=== PATIENT | male | born 1955 | race Caucasian/White ===

== ENCOUNTER 2017-12-06 08:31 | Day surgery (SDC) | payer OTHER ==
[2017-12-06] MEDS ORDERED: LACTATED RINGERS 1,000 ML IV ONE (08:55)
[2017-12-06] MEDS ORDERED: MIDAZOLAM 2 MG/2 ML VIAL IVP ONE (10:03)
[2017-12-06] MEDS ORDERED: fentaNYL 250 MCG/5 ML VIAL IVP ONE (10:03)
[2017-12-06 10:45] VITALS: BP 100/51
== END 2017-12-06 08:32 | disposition home or self-care (01) ==
LOC: SDS 08:31
PROVIDERS: ATTEND Surgery
PROC: 0DBL8ZZ Excision of Transverse Colon, Via Natural or Artificial Opening Endoscopic (ICD-10-PCS; 2017-12-06)
PROC: 0DBN8ZZ Excision of Sigmoid Colon, Via Natural or Artificial Opening Endoscopic (ICD-10-PCS; 2017-12-06)
PROC: 0DBP8ZZ Excision of Rectum, Via Natural or Artificial Opening Endoscopic (ICD-10-PCS; 2017-12-06)
PROC: 0DBM8ZZ Excision of Descending Colon, Via Natural or Artificial Opening Endoscopic (ICD-10-PCS; principal; 2017-12-06 10:00)
DX: Z12.11 Encounter for screening for malignant neoplasm of colon (principal); D12.4 Benign neoplasm of descending colon; D12.5 Benign neoplasm of sigmoid colon; D12.3 Benign neoplasm of transverse colon; K62.1 Rectal polyp; K57.30 Diverticulosis of large intestine without perforation or abscess without bleeding; K21.9 Gastro-esophageal reflux disease without esophagitis; E78.5 Hyperlipidemia, unspecified; I10 Essential (primary) hypertension; Z87.891 Personal history of nicotine dependence
CPT/HCPCS: 45380; J3010; J7120

== ENCOUNTER 2020-02-16 01:11 | Inpatient (IN) | payer MEDICARE, OTHER ==
--- NOTE | 2020-02-16 01:14 | ED Physician Documentation ---
History of Present Illness - Stated complaint Stated Complaint: M /DIZZY/FEVER - History obtained from History obtained from: Patient - Additonal information Additional information: 64-year-old male with a history of urinary tract infection and BPH and prostatitis presents with urinary frequency urgency hematuria and pelvic and abdominal pain he reports fever of 100.8 at home as well. Denies any chest pain or shortness of breath. Review of Systems Constitutional: reports: Fever, Chills, Myalgias Eyes: reports: Reviewed and negative Ears: reports: Reviewed and negative Nose: reports: Reviewed and negative Throat: reports: Reviewed and negative Cardiac: reports: Reviewed and negative Respiratory: reports: Reviewed and negative GI: reports: Abdominal Pain, Nausea, Reviewed and negative : reports: Dysuria, Frequency, Hesitancy, Hematuria, Reviewed and negative Skin: reports: Reviewed and negative Musculoskeletal: reports: Reviewed and negative Neurologic: reports: Reviewed and negative Psychiatric: reports: Reviewed and negative Endocrine: reports: Reviewed and negative Immunocompromised: reports: Reviewed and negative PD PAST MEDICAL HISTORY - Past Medical History Cardiovascular: Hypertension, High cholesterol, [place] Respiratory: None Endocrine/Autoimmune: None GI: GERD : Benign prostate hypertrophy HEENT: None Psych: None Musculoskeletal: None Derm: None - Past Surgical History General: Colonoscopy Cardiovascular: Coronary stent HEENT: Tonsil/Adenoidectomy - Present Medications Home Medications: Ambulatory Orders Medication Instructions Recorded Confirmed Aspirin 81 mg PO DAILY 12/20/15 12/06/17 Atorvastatin Calcium [Lipitor] 80 mg PO DAILY 12/20/15 12/05/17 Fenofibrate 160 mg PO DAILY 12/20/15 12/05/17 Fluticasone [Flonase] 1 spray INH DAILY 12/20/15 12/05/17 Loratadine [Claritin] 10 mg PO DAILY 12/20/15 12/05/17 Telmisartan [Micardis] 40 mg PO DAILY 12/20/15 12/05/17 Alfuzosin HCl [Alfuzosin HCl ER] 10 mg PO DAILY 12/05/17 12/05/17 Finasteride 5 mg PO DAILY 12/05/17 12/05/17 Gabapentin 100 mg PO DAILY 12/05/17 12/05/17 Omeprazole [PriLOSEC] 20 mg PO DAILY 12/05/17 12/05/17 Cephalexin [Keflex] 500 mg PO QID 10 Days #40 capsule 02/16/20 - Allergies Allergies/Adverse Reactions: Allergies Allergy/AdvReac Type Severity Reaction Status Date / Time No Known Drug Allergies Allergy Verified 02/16/20 01:20 - Social History Does the pt have substance abuse?: No PD ED PE NORMAL - Vitals Vital signs reviewed: Yes - General General: No acute distress, Other (Ill-appearing 64-year-old male) - HEENT HEENT: Atraumatic, PERRL, Moist mucous membranes - Neck Neck: Supple, no meningeal sign - Cardiac Cardiac: RRR, No murmur, Strong equal pulses - Respiratory Respiratory: No respiratory distress, Clear bilaterally, Other (Tachypnea) - Abdomen Abdomen: Normal bowel sounds, No organomegaly, Other (The abdomen soft there is no midline abdominal pulsatile mass is diffusely tender throughout the lower abdomen and suprapubic region.) - 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, Other (Blood at the urethral meatus blood on the underwear testicles are descended bilaterally diffuse tenderness in the perineum rectal exam deferred diffuse tenderness in the suprapubic region no inguinal lymphadenopathy) - Derm Derm: Normal color, Warm and dry, No rash - Extremities Extremities: No deformity, No tenderness to palpate, Normal ROM s pain, No edema, No calf tenderness / cord - Neuro Neuro: Alert and oriented X 3, 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, No motor deficit, No sensory deficit - Psych Psych: Normal mood, Normal affect Results - Vitals Vitals: Vital Signs - 24 hr 02/16/20 02/16/20 01:15 02:45 Temperature 37.1 C 38.4 C H Heart Rate 91 84 Respiratory 20 16 Rate Blood Pressure 181/82 H 159/85 H O2 Saturation 95 94 Oxygen O2 Source Room air - EKG (time done) 03:03 Rate: Other (no stemi) - Labs Labs: Laboratory Tests 02/16/20 02/16/20 02/16/20 00:24 02:25 02:25 WBC 17.1 H RBC 4.66 L Hgb 14.5 Hct 40.8 L MCV 87.6 MCH 31.1 H MCHC 35.5 RDW 14.6 Plt Count 220 MPV 10.8 Neut # (Auto) 14.6 H Lymph # (Auto) 0.9 L [place] # (Auto) 1.3 H Eos # (Auto) 0.1 Baso # (Auto) 0.1 Absolute Nucleated RBC 0.00 Nucleated RBC % 0.0 PT 14.3 H INR 1.3 H APTT 24.6 L Sodium Potassium Chloride Carbon Dioxide Anion Gap BUN Creatinine Estimated GFR (MDRD) Glucose Lactic Acid Calcium Total Bilirubin AST ALT Alkaline Phosphatase Total Creatine Kinase Total Protein Albumin Globulin Albumin/Globulin Ratio Lipase Urine Color YELLOW Urine Clarity SL. CLOUDY Urine pH 8.5 H Ur Specific [place] 1.020 Urine Protein 100 H Urine Glucose (UA) NEGATIVE Urine Ketones NEGATIVE Urine Occult Blood LARGE H Urine Nitrite POSITIVE H Urine Bilirubin NEGATIVE Urine Urobilinogen 1 (NORMAL) Ur Leukocyte Esterase LARGE H Urine RBC TNTC H Urine WBC >25 H Ur Squamous Epith Cells RARE Squamous Urine Bacteria Many H Ur Microscopic Review INDICATED Urine Culture Comments INDICATED 02/16/20 02/16/20 02:25 02:25 WBC RBC Hgb Hct MCV MCH MCHC RDW Plt Count MPV Neut # (Auto) Lymph # (Auto) [place] # (Auto) Eos # (Auto) Baso # (Auto) Absolute Nucleated RBC Nucleated RBC % PT INR APTT Sodium 137 Potassium 3.4 L Chloride 107 Carbon Dioxide 21 Anion Gap 9.0 BUN 15 Creatinine 1.1 Estimated GFR (MDRD) 67 L Glucose 128 H Lactic Acid 1.6 Calcium 9.1 Total Bilirubin 0.6 AST 24 ALT 26 Alkaline Phosphatase 43 Total Creatine Kinase 124 Total Protein 7.0 Albumin 4.5 Globulin 2.5 Albumin/Globulin Ratio 1.8 Lipase 35 Urine Color Urine Clarity Urine pH Ur Specific [place] Urine Protein Urine Glucose (UA) Urine Ketones Urine Occult Blood Urine Nitrite Urine Bilirubin Urine Urobilinogen Ur Leukocyte Esterase Urine RBC Urine WBC Ur Squamous Epith Cells Urine Bacteria Ur Microscopic Review Urine Culture Comments PD MEDICAL DECISION MAKING - ED course Complexity details: reviewed results, re-evaluated patient, considered differential, d/w patient, d/w family ED course: 64-year-old male presents with temperature of 100.8 at home respiratory rate in the 20s heart rate in the 90s on arrival which initially meets 3 out of 4 Sirs criteria IV was established with IV fluids lactate sentAs well as first dose of antibiotics was ordered. Patient initially reported that he felt like he would be able to go home and was requesting oral antibiotics we did treat him with 1 dose of oral Keflex and phenazopyridine however at this point now he is starting to feel sicker we will send labs and continue IV fluids and IV antibiotics and re-eval. 03:10 Patient is reevaluated he is not hypotensive he is feeling better after IV fluids and IV antibiotics he does meet 4/4 Sirs criteria with a leukocytosis, respiratory rate greater than 20 heart rate greater than 90 and temperature greater than 38. Spoke with the hospitalist who is agreed to admit him at this time.Patient received IV fluid bolus of 1 L as well as IV antibiotics and lactate was ordered which is not elevated. - Consults Consults: Discussed case with (dr. schafer. will admit for sepsis with uti as source. blood cultures pending. ) - Critical Care Time(min): 30 Time Includes: Direct patient care, Review records, Reassess patient, Document care, Coordinate care, Medical consult, Family consult for tx dec Data interpretation: Labs, CXR Procedures included in critical care time: Peripheral IV Procedures excluded from critical care time: EKG Departure - Departure Disposition: 64 [facility] DC/Xfer Clinical Impression: Sepsis due to urinary tract infection Condition: Stable Prescriptions: Cephalexin [Keflex] 500 mg PO QID 10 Days #40 capsule
[2020-02-16 01:35] LABS: BILIRUBIN,URINE NEGATIVE (NEGATIVE); GLUCOSE, URINE (UA) NEGATIVE (NEGATIVE); KETONES,URINE (UA) NEGATIVE (NEGATIVE); LEUKOCYTE ESTERASE, URINE LARGE (NEGATIVE); NITRITE,URINE POSITIVE (NEGATIVE); OCCULT BLOOD,URINE LARGE (NEGATIVE); PH,URINE 8.5 PH (5.0-7.5); PROTEIN,URINE 100 mg/dL (NEGATIVE); UROBILINOGEN,URINE 1 (NORMAL) E.U./dL (NORMAL)
[2020-02-16 01:37] LABS: CLARITY,URINE SL. CLOUDY (CLEAR)
[2020-02-16] MEDS ORDERED: cephALEXin 250 MG CAPSULE PO STA (01:38)
[2020-02-16] MEDS ORDERED: PHENAZOPYRIDINE 100 MG TABLET PO STA (01:38)
[2020-02-16 01:43] LABS: BACTERIA,URINE Many /HPF (None Seen); RBC,URINE TNTC /HPF (0-5); SQUAMOUS EPITHELIAL CELL,UR RARE Squamous (<= Few)
[2020-02-16] MEDS ORDERED: cefTRIAXone 1 GM VIAL IVP STA (02:09)
[2020-02-16] MEDS ORDERED: MORPHINE 2 MG/ML CARPUJECT IVP STA (02:09)
[2020-02-16] MEDS ORDERED: ONDANSETRON 4 MG/2 ML VIAL IVP STA (02:09)
[2020-02-16] MEDS ORDERED: SODIUM CHLORIDE 0.9% 1,000 ML IV STA (02:09)
[2020-02-16 02:40] LABS: BASOPHILS # (AUTO) 0.1 10^3/uL (0.0-0.1); BASOPHILS % (AUTO) 0.4 %; EOSINOPHILS # (AUTO) 0.1 10^3/uL (0.0-0.7); EOSINOPHILS % (AUTO) 0.4 %; HGB - HEMOGLOBIN 14.5 g/dL (14.0-18.0); LYMPHOCYTES # (AUTO) 0.9 10^3/uL (1.5-3.5); LYMPHOCYTES % (AUTO) 5.3 %; MEAN CORPUSCULAR HEMOGLOBIN 31.1 pg (27.0-31.0); MEAN CORPUSCULAR HGB CONC 35.5 g/dL (32.0-36.0); MEAN CORPUSCULAR VOLUME 87.6 fL (80.0-94.0); MEAN PLATELET VOLUME 10.8 fL (7.4-11.4); MONOCYTES # (AUTO) 1.3 10^3/uL (0.0-1.0); MONOCYTES % (AUTO) 7.7 %; NEUTROPHILS # (AUTO) 14.6 10^3/uL (1.5-6.6); NEUTROPHILS % (AUTO) 85.7 %; PLT - PLATELET COUNT 220 10^3/uL (130-450); RED BLOOD COUNT 4.66 10^6/uL (4.70-6.10); RED CELL DISTRIBUTION WIDTH 14.6 % (12.0-15.0); WHITE BLOOD COUNT 17.1 x10^3/uL (4.8-10.8)
[2020-02-16] MEDS ORDERED: IBUPROFEN 800 MG TABLET PO STA (02:45)
[2020-02-16 02:46] LABS: INR 1.3 (0.8-1.2); PT - PROTHROMBIN TIME 14.3 secs (9.9-12.6)
[2020-02-16 02:53] LABS: PARTIAL THROMBOPLASTIN TIME 24.6 secs (24.9-33.3)
[2020-02-16 02:54] LABS: ALBUMIN 4.5 g/dL (3.2-5.5); ALBUMIN/GLOBULIN RATIO 1.8 (1.0-2.2); BILIRUBIN,TOTAL 0.6 mg/dL (0.2-1.0); CALCIUM 9.1 mg/dL (8.5-10.3); CREATININE 1.1 mg/dL (0.6-1.2)
[2020-02-16] MEDS ORDERED: IOVERSOL 320 100 ML VIAL IVP ONE ×2 (03:25→03:55)
[2020-02-16] MEDS ORDERED: oxyCODONE 5 MG TABLET PO PRN (03:32)
[2020-02-16] MEDS ORDERED: SODIUM CHLORIDE FLUSH 0.9% 10 ML SYRINGE IVP PRN (03:32)
[2020-02-16] MEDS ORDERED: MORPHINE 2 MG/ML CARPUJECT IVP PRN (03:32)
[2020-02-16] MEDS ORDERED: ONDANSETRON 4 MG/2 ML VIAL IVP PRN (03:32)
[2020-02-16] MEDS ORDERED: LABETALOL 20 MG/4 ML SYRINGE IVP PRN (03:41)
--- NOTE | 2020-02-16 03:47 | HISTORY & PHYSICAL EXAMINATION ---
Chief Complaint - Chief Complaint Chief Complaint: weakness, hematuria and fever History of Present Illness - Admitted From Admitted From:: [facility] ED - History Obtained From Records Reviewed: yes History obtained from: patient - History of Present Illness HPI Comment/Other: Patient is a 64 y/o male who presented to the ED with complain of weakness, a fever, hematuria, dysuria and increased urinary frequency. This started on 02/15/20 around 8pm. Work up in the ED included a UA which was strongly indicative of a UTI, CBC which showed a WBC of 17 and a Temp. He reports previous UTI about 2-3 years ago. He denied chest pain but reported some dyspnea. He also reported suprapubic abdominal pain and nausea. As a result of his symptoms he is being admitted for further treatment. History - Past Medical History Cardiovascular: reports: Hypertension, High cholesterol, Coronary artery disease, [place] Respiratory: reports: None Endocrine/Autoimmune: reports: None GI: reports: GERD : reports: Benign prostate hypertrophy HEENT: reports: None Psych: reports: None Musculoskeletal: reports: None Derm: reports: None MRSA Hx?: No - Past Surgical History General: reports: Colonoscopy Cardiovascular: reports: Coronary stent HEENT: reports: Tonsil/Adenoidectomy, Other (sinuses) - Family & Social History Family History Comment/Other: He is adopted. He denies any significant history in his children Living arrangement: At home Living Situation: With family Social History Notes: He quit smoking cigarettes 10 years ago. He rarely drinks alcohol. No illicit drug use - POLST Patient has POLST: No POLST Status: Full Code Meds/Allgy - Home Medications Home Medications: Ambulatory Orders Medication Instructions Recorded Confirmed Aspirin 81 mg PO DAILY 12/20/15 02/16/20 Fluticasone [Flonase] 1 spray INH DAILY 12/20/15 02/16/20 Loratadine [Claritin] 10 mg PO DAILY 12/20/15 02/16/20 Telmisartan [Micardis] 40 mg PO DAILY 12/20/15 02/16/20 Alfuzosin HCl [Alfuzosin HCl ER] 10 mg PO DAILY 12/05/17 02/16/20 Finasteride 5 mg PO DAILY 12/05/17 02/16/20 Omeprazole [PriLOSEC] 20 mg PO DAILY 12/05/17 02/16/20 Cephalexin [Keflex] 500 mg PO QID 10 Days #40 capsule 02/16/20 Fenofibrate Nanocrystallized 145 mg PO DAILY 02/16/20 02/16/20 [Fenofibrate] Rosuvastatin Calcium 20 mg PO DAILY 02/16/20 02/16/20 - Allergies Allergies/Adverse Reactions: Allergies Allergy/AdvReac Type Severity Reaction Status Date / Time No Known Drug Allergies Allergy Verified 02/16/20 01:20 Review of Systems - Constitutional Constitutional: reports: Fever - Eyes Eyes: denies: Pain, Dipolpia - Ears, Nose & Throat Ears, Nose & Throat: denies: Ear pain - Cardiovascular Cariovascular: denies: Irregular heart rate, Palpitations, Chest pain, Edema, Lightheadedness, Syncope - Respiratory Respiratory: reports: Cough (dry). denies: Wheezing - Gastrointestinal Gastrointestinal: reports: Abdominal pain (suprapubic), Nausea, Reflux/heartburn. denies: Abdominal distention, Constipation, Diarrhea, V omiting - Genitourinary Genitourinary: reports: Dysuria, Frequency, Hematuria - Musculoskeletal Musculoskeletal: denies: Muscle pain, Back pain, Muscle aches - Integumentary Integumentary: denies: Rash, Pruritis, Lesions, Dryness - Neurological Neurological: reports: General weakness. denies: Focal weakness, Headache, Dizziness - Psychiatric Psychiatric: denies: Depression, Anxiety - Endocrine Endocrine: denies: Polyuria, Polydypsia - Hematologic/Lymphatic Hematologic/Lymphatic: denies: Anemia, Bruising Prior Level of Functionality: Patient is independent of activities of daily living. Exam - Vital Signs Vital Signs: Vital Signs x48h Temp Pulse Resp BP Pulse Ox 02/16/20 03:17 38.4 C H 86 24 163/107 H 96 02/16/20 02:45 38.4 C H 84 16 159/85 H 94 02/16/20 01:15 37.1 C 91 20 181/82 H 95 - Physical Exam General Appearance: positive: Alert, Moderate distress Eyes Bilateral: positive: PERRL, EOMI ENT: positive: No signs of dehydration Neck: positive: No JVD, Trachea midline Respiratory: positive: Chest non-tender, No respiratory distress, Rhonchi (left lung) Cardiovascular: positive: Regular rate & rhythm, No murmur Abdomen: positive: Nml bowel sounds, Tenderness (suprapubic). negative: Guarding, Rebound Back: positive: Nml inspection Skin: positive: Color nml, No rash, Warm, Dry Extremities: positive: Non-tender, Full ROM, Nml appearance, No pedal edema Neurologic/Psychiatric: positive: Oriented x3, Mood/affect nml Conclusion/Plan - Problem List (1) UTI (urinary tract infection) Conclusion/Plan: Patient given rocephin in the ED However in light of possible prostatitis, Cipro 400mg IV bid ordered Patient will need cipro for a total of 14 days. Switch to Cipro 500mg po bid upon discharge Qualifiers: Urinary tract infection type: acute cystitis Hematuria presence: without hematuria Qualified Code(s): N30.00 - Acute cystitis without hematuria (2) Hx of coronary artery disease Conclusion/Plan: On micardis, aspirin and atorvastatin (3) Hypertension Conclusion/Plan: Will resume micardis once verified Labetalol 10mg IV ordered q4hrs prn for a SBP> 160 (4) Hyperlipidemia Conclusion/Plan: On atorvastatin (5) BPH (benign prostatic hyperplasia) Conclusion/Plan: On finasteride and alfuzosin (6) GERD (gastroesophageal reflux disease) Conclusion/Plan: On protonix - Lab Results Fish Bones: 02/16/20 02:25 02/16/20 02:25 Core Measures - Anticipated LOS I expect patient to be DC'd or transferred within 96 hours.: Yes - DVT/VTE - Prophylaxis VTE/DVT Device ordered at admit?: Yes VTE/DVT Prophylaxis med ordered at admit?: No Not Ordered - Medical Reason: Contraindicated (hematuria)
[2020-02-16] MEDS: SODIUM CHLORIDE 0.9% 1,000 ML IV SCH ×2 (05:19→16:21)
[2020-02-16] MEDS: CIPROFLOXACIN 400 MG/200 ML 400 MG/200 ML BAG IV SCH ×2 (05:20→16:19)
[2020-02-16 06:40] LABS: BASOPHILS % (AUTO) 0.5 %; EOSINOPHILS % (AUTO) 0.1 %; HGB - HEMOGLOBIN 13.3 g/dL (14.0-18.0); LYMPHOCYTES # (AUTO) 0.5 10^3/uL (1.5-3.5); MEAN CORPUSCULAR HEMOGLOBIN 30.7 pg (27.0-31.0); MEAN CORPUSCULAR VOLUME 87.8 fL (80.0-94.0); MEAN PLATELET VOLUME 10.5 fL (7.4-11.4); MONOCYTES # (AUTO) 0.1 10^3/uL (0.0-1.0); MONOCYTES % (AUTO) 0.8 %; NEUTROPHILS # (AUTO) 8.1 10^3/uL (1.5-6.6); NEUTROPHILS % (AUTO) 92.4 %; PLT - PLATELET COUNT 182 10^3/uL (130-450); RED BLOOD COUNT 4.33 10^6/uL (4.70-6.10); RED CELL DISTRIBUTION WIDTH 14.6 % (12.0-15.0); WHITE BLOOD COUNT 8.8 x10^3/uL (4.8-10.8)
[2020-02-16 06:49] LABS: CALCIUM 8.6 mg/dL (8.5-10.3); CREATININE 1.1 mg/dL (0.6-1.2)
[2020-02-16] MEDS: PANTOPRAZOLE 40 MG TABLET PO SCH (07:11)
--- NOTE | 2020-02-16 08:33 | CT Report ---
PROCEDURE: Abdomen/Pelvis W INDICATIONS: pelvic/abd pain CONTRAST: IV CONTRAST: Optiray 320 ml: 100 PO CONTRAST: *NO PO CONTRAST TECHNIQUE: After the administration of intravenous contrast, 5 mm thick sections acquired from the diaphragms to the symphysis. 5 mm thick coronal and sagittal reformats were acquired. For radiation dose reducti on, the following was used: automated exposure control, adjustment of mA and/or kV according to hollis ent size. COMPARISON: Chest 1 View dated 02/16/2020 FINDINGS: Image quality: Excellent. ABDOMEN: Lung bases: 6 mm pulmonary nodule, right middle lobe, image 5/4. Minimal bibasilar dependent changes in the lung bases. Heart size is normal. Solid organs: Liver and spleen are normal in size and enhancement. Gallbladder Biliary system is non dilated. Pancreas enhances normally. No adrenal nodules. Kidneys demonstrate normal size an d enhancement, without hydronephrosis. Peritoneum and bowel: Bowel loops demonstrate normal wall thickness and caliber. No free fluid or a ir. Sigmoid diverticulosis without evidence of diverticulitis. Nodes and vessels: No retroperitoneal or mesenteric adenopathy by size criteria. Aorta and inferior vena cava are normal in size. Miscellaneous: Small periumbilical hernia containing fat. PELVIS: Genitourinary: Mild bladder wall thickening. Enlarged prostate. Minimal stranding in the perivesicula r fat. Miscellaneous: No inguinal hernias or adenopathy. Bones: No suspicious bony lesions. No vertebral body compression fractures. IMPRESSION: 1. 6 mm pulmonary nodule, right middle lobe. Consider nonemergent chest CT. 2. Enlarged prostate, mild bladder wall thickening, mild posterior perivesicular fat stranding. Findi ngs possibly indicate cystitis or prostatitis. Suggest clinical correlation. A preliminary report with the above findings was provided at the time of the study by [employer]. Reviewed by: Gurinder Chino MD on 02/16/2020 7:31 AM TINA Approved by: Gurinder Chino MD on 02/16/2020 7:31 AM TINA Station ID: [id number]
[2020-02-16] MEDS: SODIUM CHLORIDE FLUSH 0.9% 10 ML SYRINGE IVP SCH ×2 (08:54→16:27)
--- NOTE | 2020-02-16 09:26 | XRAY Report ---
PROCEDURE: Chest 1 View X-Ray INDICATIONS: fever TECHNIQUE: One view of the chest was acquired. COMPARISON: Chest x-ray 03/07/2010 FINDINGS: Surgical changes and devices: None. Lungs and pleura: No pleural effusions or pneumothorax. Lungs are clear. Mediastinum: Mediastinal contours appear normal. Heart size is enlarged Bones and chest wall: No suspicious bony lesions. Overlying soft tissues appear unremarkable. IMPRESSION: No acute pulmonary process. The above findings are concordant with preliminary report. Reviewed by: Yenny Dominique MD on 02/16/2020 9:25 AM PDT Approved by: Yenny Dominique MD on 02/16/2020 9:25 AM PDT Station ID: [id number]
[2020-02-16] MEDS: ACETAMINOPHEN 325 MG TABLET PO PRN (16:34)
--- NOTE | 2020-02-16 16:52 | PHARMACY PROGRESS NOTE ---
- Best Possible Medication History Admit Date and Time: 02/16/20 0332 Processed by: Nursing As the person ultimately responsible for medication therapy, providers are able to order a medication from an existing home medication list in [facility] via the "Reconcile Routine" prior to Confirmation of that medication by systems support officer. Such practice is discouraged except when the physician, in their clinical judgment, deems that a medical need exists for a medication without regard to previous use.
--- NOTE | 2020-02-16 21:48 | Ultrasound Report ---
PROCEDURE: Testicle INDICATIONS: testicular pain/swelling TECHNIQUE: Real-time scanning was performed of the scrotum and testicles, with image documentation. Color and p ulse Doppler interrogation was performed of both testicles. COMPARISON: None. FINDINGS: Right: Testicle is normal in size at 4.5 x 2.4 x 2.9 cm, and homogenous in echotexture. Epididymis is mildly prominent and heterogeneous with increased vascularity. Varicocele is noted. Overlying scro fly skin is normal in thickness. Left: Testicle is normal in size at 4.6 x 2.4 x 3.0 cm, and homogeneous in echotexture. Epididymis is normal in overall size and morphology. Varicocele is noted. Overlying scrotal skin is normal in th ickness. Doppler: Color and pulse Doppler demonstrate normal and symmetric arterial flow in both testicles. IMPRESSION: 1. Mildly prominent right epididymis with increased vascularity suggestive of epididymitis. Reviewed by: Yenny Dominique MD on 02/16/2020 9:47 PM PDT Approved by: Yenny Dominique MD on 02/16/2020 9:47 PM PDT Station ID: [id number]
[2020-02-17] MEDS: ACETAMINOPHEN 325 MG TABLET PO PRN (00:28)
[2020-02-17] MEDS: SODIUM CHLORIDE FLUSH 0.9% 10 ML SYRINGE IVP SCH ×3 (01:25→16:27)
[2020-02-17] MEDS: SODIUM CHLORIDE 0.9% 1,000 ML IV SCH ×3 (01:57→22:30)
[2020-02-17] MEDS: CIPROFLOXACIN 400 MG/200 ML 400 MG/200 ML BAG IV SCH ×2 (04:26→16:25)
[2020-02-17 05:17] LABS: BASOPHILS % (AUTO) 0.4 %; EOSINOPHILS % (AUTO) 0.4 %; HGB - HEMOGLOBIN 11.7 g/dL (14.0-18.0); LYMPHOCYTES % (AUTO) 8.7 %; MEAN CORPUSCULAR HEMOGLOBIN 29.6 pg (27.0-31.0); MEAN CORPUSCULAR HGB CONC 33.5 g/dL (32.0-36.0); MEAN CORPUSCULAR VOLUME 88.4 fL (80.0-94.0); MEAN PLATELET VOLUME 10.9 fL (7.4-11.4); MONOCYTES % (AUTO) 8.1 %; NEUTROPHILS % (AUTO) 81.2 %; PLT - PLATELET COUNT 194 10^3/uL (130-450); RED BLOOD COUNT 3.95 10^6/uL (4.70-6.10); RED CELL DISTRIBUTION WIDTH 14.9 % (12.0-15.0); WHITE BLOOD COUNT 18.6 x10^3/uL (4.8-10.8)
[2020-02-17 05:22] LABS: ABNORMAL LYMPHS % (MANUAL) 0 %
[2020-02-17 05:25] LABS: CREATININE 1.2 mg/dL (0.6-1.2)
[2020-02-17 05:39] LABS: BAND NEUTROPHILS % (MANUAL) 2 %; EOSINOPHILS # (MANUAL) 0.2 10^3/uL (0-0.7); LYMPHOCYTES # (MANUAL) 1.7 10^3/uL (1.5-3.5); LYMPHOCYTES % (MANUAL) 9 %; MONOCYTES # (MANUAL) 0.9 10^3/uL (0.0-1.0)
[2020-02-17 05:40] LABS: DIFFERENTIAL COMMENT MANUAL DIFFERENTIAL; PLATELET ESTIMATE, MANUAL NORMAL (130-450,000) (NORMAL); PLATELET MORPHOLOGY NORMAL APPEARANCE (NORMAL); RBC MORPHOLOGY (MULTIPLE) NORMAL APPEARANCE (NORMAL)
[2020-02-17] MEDS: PANTOPRAZOLE 40 MG TABLET PO SCH (06:22)
--- NOTE | 2020-02-17 07:48 | PROVIDER PROGRESS NOTE ---
Assessment/Plan - Problem List (1) E. coli UTI Assessment/Plan: E. coli was just identified as the organism in the urine culture. Awaiting sensitivities. Continue with empiric IV antibiotic (Cipro). (2) Cystitis Assessment/Plan: CT abdomen pelvis showed fat stranding of the urinary bladder consistent with cystitis. Patient given rocephin in the ED. However in light of possible prostatitis, Cipro 400mg IV bid started. Blood cultures are negative at 1 day, the urine culture results are still pending. Patient will need cipro for a total of 14 days. Plan to switch to Cipro 500mg po bid upon discharge (3) Epididymitis Assessment/Plan: Patient had a painful scrotum, underwent ultrasound which shows a hypervascular 2 cm enlargement consistent with epididymitis. Cipro is appropriate treatment, the plan is for a total 2-week course of antibiotics which will cover this. (4) Zenker's diverticulum Assessment/Plan: The Legal Clerk last night witnessed the patient coughing and the patient reported that this happens to him and it is because of particles and food being stuck in his Zenker's diverticulum. He saw an ENT in [place] and was offered to go to ENT in [place]. He is going to see a Airveyor Operator, for the first time this as well. This will be recommended after discharge, as an outpatient, to coordinate by his PCP (5) Hypokalemia Assessment/Plan: Replace. Follow BMP daily (6) Hx of coronary artery disease Assessment/Plan: On micardis, aspirin and atorvastatin (7) Lung nodule, solitary Assessment/Plan: Lung nodule was seen on abdomen pelvis CT. He reports that his chest x-rays have shown " fogginess across both upper lung swan" for which he had a Shop Firer/Fireman do work-up, found nothing, and he is to see a Airveyor Operator for the first time on of this upcoming week. Will order CT chest, as was recommended, after COVID result back and is documented as negative. (8) Hypertension Assessment/Plan: Will resume micardis once verified Labetalol 10mg IV ordered q4hrs prn for a SBP> 160 (9) Hyperlipidemia Assessment/Plan: Continue on his atorvastatin (10) BPH (benign prostatic hyperplasia) Assessment/Plan: On finasteride and alfuzosin (11) GERD (gastroesophageal reflux disease) Assessment/Plan: On protonix - Current Meds Current Meds: Current Medications Generic Name Dose Route Start Last Admin Trade Name Freq PRN Reason Stop Dose Admin Acetaminophen 650 mg 02/16/20 03:32 02/17/20 00:28 Tylenol PO 650 mg Q4HR PRN Administration Pain 1 to 4 Sodium Chloride 1,000 mls @ 100 mls/hr 02/16/20 04:00 02/17/20 05:40 Normal Saline 0.9% IV 100 mls/hr .Q10H CHLOE Infusion Ciprofloxacin 400 mg in 200 mls @ 200 mls/hr 02/16/20 04:00 02/17/20 05:40 Cipro 400 Mg/200 Ml IV Infused Q12H CHLOE Infusion Pantoprazole Sodium 40 mg 02/16/20 07:00 02/17/20 06:22 Protonix PO 40 mg QDAC CHLOE Administration Sodium Chloride 10 ml 02/16/20 03:32 02/16/20 05:22 Normal Saline Flush 0.9% IVP 10 ml PRN PRN Administration NEEDED PER PROVIDER ORDERS Sodium Chloride 10 ml 02/16/20 09:00 02/17/20 01:25 Normal Saline Flush 0.9% IVP Not Given 0100,0900,1700 CHLOE - Lab Result Fish Bone Diagrams: 02/17/20 04:40 02/17/20 04:40 Subjective - Subjective Patient Reports: Feeling Better, Cough (This is chronic, food sometimes comes out, he knows it is from his Zenker's diverticulum.) Objective Vital Signs: Vital Signs - 24 hr 02/16/20 02/16/20 02/16/20 13:00 15:57 21:00 Temperature 36.6 C 36.3 C L 36.6 C Heart Rate [ 72 65 71 Brachial] Respiratory 18 18 18 Rate Blood Pressure 105/62 104/65 122/68 [Right Brachial artery] O2 Saturation 95 97 96 02/17/20 02/17/20 00:06 04:30 Temperature 37.4 C 37.0 C Heart Rate [ 73 68 Brachial] Respiratory 19 18 Rate Blood Pressure 119/65 124/71 [Right Brachial artery] O2 Saturation 95 94 Oxygen O2 Source Room air I&O (Last 24 Hrs): Intake and Output Totals x24h 0902/16/20 02/17/20 23:59 23:59 23:59 Intake Total 3566.667 1658.333 Output Total 1410 700 Balance 2156.667 958.333 General: Alert, Oriented x3 HEENT: Mucous membr. moist/pink, Other (Hoarse voice) Neuro: Alert, Non Focal Cardiovascular: Regular rate Respiratory: No respiratory distress Abdomen: Soft Extremities: No edema - Results Results: Laboratory Results WBC 18.6 x10^3/uL (4.8-10.8) H 02/17/20 04:40 RBC 3.95 10^6/uL (4.70-6.10) L 02/17/20 04:40 Hgb 11.7 g/dL (14.0-18.0) L 02/17/20 04:40 Hct 34.9 % (42.0-52.0) L 02/17/20 04:40 MCV 88.4 fL (80.0-94.0) 02/17/20 04:40 MCH 29.6 pg (27.0-31.0) 02/17/20 04:40 MCHC 33.5 g/dL (32.0-36.0) 02/17/20 04:40 RDW 14.9 % (12.0-15.0) 02/17/20 04:40 Plt Count 194 10^3/uL (130-450) 02/17/20 04:40 MPV 10.9 fL (7.4-11.4) 02/17/20 04:40 Neut # (Auto) Not Reportable 02/17/20 04:40 Lymph # (Auto) Not Reportable 02/17/20 04:40 [place] # (Auto) Not Reportable 02/17/20 04:40 Eos # (Auto) Not Reportable 02/17/20 04:40 Baso # (Auto) Not Reportable 02/17/20 04:40 Absolute Nucleated RBC Not Reportable 02/17/20 04:40 Total Counted 100 02/17/20 04:40 Band Neuts % (Manual) 2 % (0-10) 02/17/20 04:40 Abnorm Lymph % (Manual) 0 % 02/17/20 04:40 Nucleated RBC % Not Reportable 02/17/20 04:40 Neutrophils # (Manual) 15.8 10^3/uL (1.5-6.6) H 02/17/20 04:40 Lymphocytes # (Manual) 1.7 10^3/uL (1.5-3.5) 02/17/20 04:40 Monocytes # (Manual) 0.9 10^3/uL (0.0-1.0) 02/17/20 04:40 Eosinophils # (Manual) 0.2 10^3/uL (0-0.7) 02/17/20 04:40 Basophils # (Manual) 0.0 10^3/uL (0-0.1) 02/17/20 04:40 Differential Comment MANUAL DIFFERENTIAL 02/17/20 04:40 WBC Morphology NORMAL APPEARANCE (NORMAL) 02/17/20 04:40 Platelet Estimate NORMAL (130-450,000) (NORMAL) 02/17/20 04:40 Platelet Morphology NORMAL APPEARANCE (NORMAL) 02/17/20 04:40 RBC Morph Micro Appear NORMAL APPEARANCE (NORMAL) 02/17/20 04:40 PT 14.3 secs (9.9-12.6) H 02/16/20 02:25 INR 1.3 (0.8-1.2) H 02/16/20 02:25 APTT 24.6 secs (24.9-33.3) L 02/16/20 02:25 Sodium 140 mmol/L (135-145) 02/17/20 04:40 Potassium 3.4 mmol/L (3.5-5.0) L 02/17/20 04:40 Chloride 110 mmol/L (101-111) 02/17/20 04:40 Carbon Dioxide 23 mmol/L (21-32) 02/17/20 04:40 Anion Gap 7.0 (6-13) 02/17/20 04:40 BUN 16 mg/dL (6-20) 02/17/20 04:40 Creatinine 1.2 mg/dL (0.6-1.2) 02/17/20 04:40 Estimated GFR (MDRD) 61 (>89) L 02/17/20 04:40 Glucose 122 mg/dL (70-100) H 02/17/20 04:40 Lactic Acid 1.6 mmol/L (0.5-2.2) 02/16/20 02:25 Calcium 9.0 mg/dL (8.5-10.3) 02/17/20 04:40 Total Bilirubin 0.6 mg/dL (0.2-1.0) 02/16/20 02:25 AST 24 IU/L (10-42) 02/16/20 02:25 ALT 26 IU/L (10-60) 02/16/20 02:25 Alkaline Phosphatase 43 IU/L (42-121) 02/16/20 02:25 Total Creatine Kinase 124 IU/L (22-269) 02/16/20 02:25 Troponin I High Sens 11.6 ng/L (2.3-19.7) 02/16/20 02:25 B-Natriuretic Peptide 52 pg/mL (5-100) 02/16/20 02:25 Total Protein 7.0 g/dL (6.7-8.2) 02/16/20 02:25 Albumin 4.5 g/dL (3.2-5.5) 02/16/20 02:25 Globulin 2.5 g/dL (2.1-4.2) 02/16/20 02:25 Albumin/Globulin Ratio 1.8 (1.0-2.2) 02/16/20 02:25 Lipase 35 U/L (22-51) 02/16/20 02:25 Urine Color YELLOW 02/16/20 00:24 Urine Clarity SL. CLOUDY (CLEAR) 02/16/20 00:24 Urine pH 8.5 PH (5.0-7.5) H 02/16/20 00:24 Ur Specific [place] 1.020 (1.002-1.030) 02/16/20 00:24 Urine Protein 100 mg/dL (NEGATIVE) H 02/16/20 00:24 Urine Glucose (UA) NEGATIVE mg/dL (NEGATIVE) 02/16/20 00:24 Urine Ketones NEGATIVE mg/dL (NEGATIVE) 02/16/20 00:24 Urine Occult Blood LARGE (NEGATIVE) H 02/16/20 00:24 Urine Nitrite POSITIVE (NEGATIVE) H 02/16/20 00:24 Urine Bilirubin NEGATIVE (NEGATIVE) 02/16/20 00:24 Urine Urobilinogen 1 (NORMAL) E.U./dL (NORMAL) 02/16/20 00:24 Ur Leukocyte Esterase LARGE (NEGATIVE) H 02/16/20 00:24 Urine RBC TNTC /HPF (0-5) H 02/16/20 00:24 Urine WBC >25 /HPF (0-3) H 02/16/20 00:24 Ur Squamous Epith Cells RARE Squamous (<= Few) 02/16/20 00:24 Urine Bacteria Many /HPF (None Seen) H 02/16/20 00:24 Ur Microscopic Review INDICATED 02/16/20 00:24 Urine Culture Comments INDICATED 02/16/20 00:24 - Procedures Procedures: Procedures EXCISION OF DESCENDING COLON, ENDO (12/06/17) EXCISION OF RECTUM, ENDO (12/06/17) EXCISION OF SIGMOID COLON, ENDO (12/06/17) EXCISION OF TRANSVERSE COLON, ENDO (12/06/17)
[2020-02-17] MEDS: POTASSIUM CHLORIDE 20 MEQ TABLET PO SCH ×2 (09:16→12:22)
[2020-02-17] MEDS: polyethylene glycoL 3350 17 GM PACKET PO SCH (12:22)
[2020-02-17] MEDS: DOCUSATE SODIUM 250 MG CAPSULE PO SCH (14:33)
[2020-02-17] MEDS: SENNA 8.6 MG TABLET PO SCH (14:34)
[2020-02-18] MEDS: SODIUM CHLORIDE FLUSH 0.9% 10 ML SYRINGE IVP SCH ×2 (03:36→09:01)
[2020-02-18] MEDS: CIPROFLOXACIN 400 MG/200 ML 400 MG/200 ML BAG IV SCH (03:42)
[2020-02-18 04:51] LABS: BASOPHILS # (AUTO) 0.1 10^3/uL (0.0-0.1); BASOPHILS % (AUTO) 0.4 %; EOSINOPHILS # (AUTO) 0.1 10^3/uL (0.0-0.7); EOSINOPHILS % (AUTO) 0.8 %; HGB - HEMOGLOBIN 12.1 g/dL (14.0-18.0); LYMPHOCYTES # (AUTO) 1.4 10^3/uL (1.5-3.5); MEAN CORPUSCULAR VOLUME 88.3 fL (80.0-94.0); MEAN PLATELET VOLUME 10.8 fL (7.4-11.4); MONOCYTES # (AUTO) 1.1 10^3/uL (0.0-1.0); NEUTROPHILS # (AUTO) 12.7 10^3/uL (1.5-6.6); NEUTROPHILS % (AUTO) 81.6 %; PLT - PLATELET COUNT 209 10^3/uL (130-450); RED BLOOD COUNT 4.03 10^6/uL (4.70-6.10); RED CELL DISTRIBUTION WIDTH 14.8 % (12.0-15.0); WHITE BLOOD COUNT 15.6 x10^3/uL (4.8-10.8)
[2020-02-18 05:00] LABS: CREATININE 1.1 mg/dL (0.6-1.2); MAGNESIUM 1.9 mg/dL (1.7-2.8)
[2020-02-18] MEDS ORDERED: IOVERSOL 320 100 ML VIAL IVP ONE ×2 (07:59→10:17)
--- NOTE | 2020-02-18 08:41 | CT Report ---
PROCEDURE: CHEST W INDICATIONS: lung nodule, cough CONTRAST: IV CONTRAST: Optiray 320 ml: 100 PO CONTRAST: *NO PO CONTRAST TECHNIQUE: After the administration of intravenous contrast, 5 mm thick sections acquired from the pulmonary api renee to the posterior costophrenic angles. 7 mm thick coronal MIP reformats were acquired. For radia tion dose reduction, the following was used: automated exposure control, adjustment of mA and/or kV according to patient size. COMPARISON: Abdominal/pelvis CT 02/16/2020 reviewed, which identified a small lung nodule. FINDINGS: Image quality: Excellent. Lungs and pleura: No acute air space opacities. There is a previously identified 9 mm nodule within the lateral segment right middle lobe, sharply demarcated and free of spiculation, chronicity uncerta in. This has not been detectable accurately by plain film imaging recently obtained. No pleural effu sions or pneumothorax. Central and peripheral airways are patent and normal in caliber. Mediastinum: Heart size is normal. No pericardial effusion. No mediastinal or hilar adenopathy by size criteria. Thoracic aorta and central pulmonary arteries are normal in size. Esophagus is vilma l in caliber. No hiatal hernia. Bones and chest wall: No suspicious bony lesions. No vertebral body compression fractures. No axil huang or supraclavicular adenopathy by size criteria. Thyroid gland appears normal where well seen.. Abdomen: Visualized upper abdominal solid organs appear normal. Upper abdominal bowel loops are nor mal in caliber. IMPRESSION: Isolated finding of a 9 mm nodule lateral segment right middle lobe, rounded, sharply demarcated, wit hout internal calcifications were associated adenopathy. No additional abnormality elsewhere is found . Follow-up noncontrast CT scan in 6 months is recommended to assist in establishing absence of panda e over time. Please note that this structure cannot be accurately detected by plain film imaging rece ntly obtained. This was originally identified by abdomen/pelvis CT as an incidental finding 02/16/2020 . Reviewed by: Lino Betts MD on 02/18/2020 8:40 AM PDT Approved by: Lino Betts MD on 02/18/2020 8:40 AM PDT Station ID: [id number]
[2020-02-18] MEDS: PANTOPRAZOLE 40 MG TABLET PO SCH (08:56)
--- NOTE | 2020-02-18 08:56 | Discharge Plan ---
Discharge Plan Problem Reviewed?: Yes Disposition: Home Health Service Condition: Fair Prescriptions: Lactobacillus Acidophilus [Acidophilus] 1 each PO DAILY #28 capsule Ciprofloxacin HCl 750 mg PO BID #56 tablet Tamsulosin [Flomax] 0.4 mg PO DAILY #30 capsule Diet: Regular Activity Restrictions: Activity as Tolerated Shower Restrictions: No Driving Restrictions: No Instruction Topics: Prostatitis Bacterial, Catheter Bag Urinary Empty Clean, Epididymitis Dc, Catheter Indwelling Urinary Dc, Leg Bag Care Dc, Catheter Britt Boy , ED Nodule Solitary Pulmonary Health Concerns: You were admitted with a severe infection of the urinary tract; you were diagnosed with an infection of the bladder (cystitis), the prostate (prostatitis) and area above the testicle (epididymitis). You were given IV antibiotics and had improvement in your fever and elevated white blood count. Last night and today you have had urinary retention, and inability to empty your bladder adequately. A Britt catheter is being inserted and you are being discharged with a Britt catheter and a leg bag. Referral has been sent to the Home Health service for a nurse to come to your house and help you with questions or give further education regarding managing the Britt. You are being discharged and should finish the necessary course of antibiotic treatment; take the medications until they are entirely finished. The prescription for Cipro and also a probiotic (to prevent diarrhea) were electronically sent to your pharmacy. There is also a second medication for your prostate, that was newly prescribed which you should take, even with the new Britt catheter in place. Resume all your other pre-hospital medications. CT scan of the chest was done to evaluate the pulmonary nodule, and a copy of the report is provided for you. Keep your appointment to the Cardiac Cath Lab Manager later this week. You should see your PCP and move up your appointment to your Urologist, for further evaluation and management of your urinary tract. Plan of Treatment: As above. Care Goals: Improvement in symptoms and stabilization are the goals. Assessment: Patient understands and is agreeable with the plan. Additional Instructions or Follow Up instructions: If you have new or worsening symptoms, call your Primary Care provider or Urologist for advice, or come to the ER. No Smoking: If you smoke, Please STOP! Call for help.
[2020-02-18] MEDS: DOCUSATE SODIUM 250 MG CAPSULE PO SCH (09:00)
[2020-02-18] MEDS: polyethylene glycoL 3350 17 GM PACKET PO SCH (09:00)
[2020-02-18] MEDS ORDERED: TAMSULOSIN 0.4 MG CAPSULE PO SCH (09:00)
[2020-02-18] MEDS: SENNA 8.6 MG TABLET PO SCH (09:00)
[2020-02-18] MEDS ORDERED: LIDOCAINE 2% URO-JET 5 ML SYRINGE UR ONE (09:24)
[2020-02-18] MEDS: SODIUM CHLORIDE 0.9% 1,000 ML IV SCH (09:32)
[2020-02-18] MEDS ORDERED: LOSARTAN 50 MG TABLET PO SCH (12:00)
[2020-02-18 12:15] VITALS: BP 146/93
--- NOTE | 2020-02-18 12:47 | DISCHARGE SUMMARY ---
Discharge Summary Admit Date: 02/16/20 Discharge Date: 02/18/20 Discharging Provider: Dr Yuridia Espino Primary Care Provider: None Condition at Discharge: Fair Discharge Disposition: [facility] History of Present Illness: From the admission H&P of Dr Blake Sosa: Patient is a 64 y/o white male with a Hx of CAD, HTN and GERD who presented to the ED with complain of weakness, a fever, hematuria, dysuria and increased urinary frequency. This started on 02/15/20 around 8pm. Work up in the ED has included a U/A which was strongly indicative of a UTI, CBC which showed a WBC of 17 and a fever. He reports previous UTI about 2-3 years ago. He denied chest pain but reported some dyspnea. He also reported suprapubic abdominal pain and nausea. As a result of his symptoms and findings, he is being admitted for further treatment. - HOSPITAL COURSE Hospital Course: (1) E. coli UTI Patient was given a dose iv Rocephin in the ED, however in light of possible prostatitis, he was empirically put on iv Cipro. E. coli was identified as the organism in the urine culture, sensitive to Cipro. He defervesced and WBC improved. He was discharged to complete a 4 week course of oral Cipro and he wa s prescribed a probiotic. (2) Cystitis CT abdomen pelvis showed fat stranding of the urinary bladder consistent with cystitis. Blood cultures were all negative to date. (3) Epididymitis Patient had a painful scrotum. He underwent testicular ultrasound which shows a hypervascular 2 cm enlargement consistent with epididymitis. Cipro was appropri ate treatment for this also. (4) Acute urinary retention On the night prior to discharge, he had abdominal discomfort and bladder scan showed >400 cc of urine. He was straight cathed with relief. The next morning (day of discharge), he had urinary retention again and he required insertion of a Britt catheter, and was instructed in use of a leg bag and was discharged with this. A referral to Home Health was placed, in order to have an RN continue education for management of the Britt. He was advised to have follow-up with his (established) Urologist soon, for further management. The outpatient Urology appointment was requested to be moved to sooner. (5) BPH (benign prostatic hyperplasia) The CT abdomen/pelvis showed prostate enlargement and the radiologist stated possible prostatitis present. He was kept on his home med Alfuzosin and was discharged on new Tamsolusin as well. He was advised Urology follow-up soon. (6) Zenker's diverticulum The Supervisor Production Managing witnessed the patient coughing and the patient reported that this happens to him and it is because of particles and food being stuck in his Zenker's diverticulum. He saw an ENT in [place] and was offered to go to ENT in [place]. He is going to see a [place] Machine Operator, for the first time this upcoming week as well. (7) Lung nodule, solitary Lung nodule was reported as an incidental finding from the abdomen/pelvis CT. A CT chest was done here and showed the nodule and no significant lymphadenopathy. The CT chest report was provided to the patient to take to his appointments. (8) Chronic cough He reports that his chest x-rays have shown " fogginess across both upper lung swan" for which he had a Supervisor Agency Appointments do work-up, reports they found nothing, and he is to see a [place] Machine Operator for the first time this upcoming week. COVID swab was done while he was hospitalized and the result is negative. (9) Hypokalemia Corrected with replacement. (10) Hx of coronary artery disease He was kept on his BP med micardis, aspirin and atorvastatin (11) Hypertension BP was elevated and his home dose of micardis was restarted here. (12) Hyperlipidemia Continued on his atorvastatin. (13) GERD (gastroesophageal reflux disease) He was on protonix. - ALLERGIES Allergies/Adverse Reactions: Allergies Allergy/AdvReac Type Severity Reaction Status Date / Time No Known Drug Allergies Allergy Verified 02/16/20 01:20 - MEDICATIONS Home Medications: Ambulatory Orders Medication Instructions Recorded Confirmed Aspirin 81 mg PO DAILY 12/20/15 02/16/20 Fluticasone [Flonase] 1 spray INH BID 12/20/15 02/16/20 Loratadine [Claritin] 10 mg PO DAILY 12/20/15 02/16/20 Telmisartan [Micardis] 40 mg PO DAILY 12/20/15 02/16/20 Alfuzosin HCl [Alfuzosin HCl ER] 10 mg PO DAILY 12/05/17 02/16/20 Finasteride 5 mg PO DAILY 12/05/17 02/16/20 Omeprazole [PriLOSEC] 20 mg PO DAILY 12/05/17 02/16/20 Fenofibrate Nanocrystallized 145 mg PO DAILY 02/16/20 02/16/20 [Fenofibrate] Rosuvastatin Calcium 20 mg PO DAILY 02/16/20 02/16/20 Ciprofloxacin HCl 750 mg PO BID #56 tablet 02/18/20 Lactobacillus Acidophilus 1 each PO DAILY #28 capsule 02/18/20 [Acidophilus] Tamsulosin [Flomax] 0.4 mg PO DAILY #30 capsule 02/18/20 - PHYSICAL EXAM AT DISCHARGE General Appearance: positive: No acute distress, Alert Eyes Bilateral: positive: Normal inspection, EOMI ENT: positive: ENT inspection nml, No signs of dehydration Neck: positive: Nml inspection, No JVD Respiratory: positive: No respiratory distress, Breath sounds nml Cardiovascular: positive: Regular rate & rhythm, No murmur Abdomen: positive: Non-tender, Nml bowel sounds, Other (Britt catheter in place) Skin: positive: Color nml, Warm, Dry Extremities: positive: Non-tender, No pedal edema Neurologic/Psychiatric: positive: Oriented x3 (Non-focal ) - LABS Result Diagrams: 02/18/20 04:38 02/18/20 04:38 - DIAGNOSTIC IMAGING Diagnostic Imaging Results: Final report reviewed - FOLLOW UP Follow Up: See Urologist for hospital follow-up soon. Request for an earlier appointment than April. Keep upcoming [employer] Machine Operator appointment. Recommend establishing with a new PCP. A list of providers was given to the pat ient. - TIME SPENT Time Spent in Discharge (Minutes): 60
== END 2020-02-18 13:15 | disposition home health service (06) | DRG 728 ==
LOC: ED 01:11 → MS3 03:32
PROVIDERS: ADMIT Internal Medicine; ATTEND Internal Medicine
DX: A41.9 Sepsis, unspecified organism (principal); N39.0 Urinary tract infection, site not specified; N45.1 Epididymitis; R35.0 Frequency of micturition; N30.00 Acute cystitis without hematuria; E78.00 Pure hypercholesterolemia, unspecified; I10 Essential (primary) hypertension; B96.20 Unspecified Escherichia coli [E. coli] as the cause of diseases classified elsewhere; K21.9 Gastro-esophageal reflux disease without esophagitis; N41.9 Inflammatory disease of prostate, unspecified; E78.5 Hyperlipidemia, unspecified; N40.1 Benign prostatic hyperplasia with lower urinary tract symptoms; R33.8 Other retention of urine; R91.1 Solitary pulmonary nodule; E87.6 Hypokalemia; K22.5 Diverticulum of esophagus, acquired; I25.10 Atherosclerotic heart disease of native coronary artery without angina pectoris; R05 Cough; Z20.828 Contact with and (suspected) exposure to other viral communicable diseases; Z79.82 Long term (current) use of aspirin; Z79.899 Other long term (current) drug therapy; I25.2 Old myocardial infarction; Z95.5 Presence of coronary angioplasty implant and graft; Z87.891 Personal history of nicotine dependence; Z87.440 Personal history of urinary (tract) infections
CPT/HCPCS: 36415; 51798; 71045; 71260; 74177; 76870; 80048; 80053; 81001; 82550; 83605; 83690; 83735; 83880; 84484; 85025; 85610; 85730; 87040; 87086; 87181; 93005; 96361; 96374; 96375; 99285; 99291; A9270; Q9967; U0004; 81003

== ENCOUNTER 2020-03-21 20:06 | Outpatient (CLI) | payer MEDICARE, OTHER | END 2020-03-21 20:07 | disposition home or self-care (01) | LOC: COV 20:06 | PROVIDERS: ATTEND Internal Medicine Pulmonary Disease | DX: R05 Cough (principal); Z20.828 Contact with and (suspected) exposure to other viral communicable diseases ==

== ENCOUNTER 2020-08-04 13:09 | Outpatient (CLI) | payer MEDICARE, OTHER ==
--- NOTE | 2020-08-04 16:47 | CT Report ---
PROCEDURE: CHEST WO INDICATIONS: LUNG NODULE TECHNIQUE: Noncontrast 5 mm thick sections acquired from the pulmonary apices to the posterior costophrenic angl es. 7 mm thick coronal and sagittal MIP reformats were then acquired. For radiation dose reduction, the following was used: automated exposure control, adjustment of mA and/or kV according to patient size. COMPARISON: 02/18/2020 FINDINGS: Image quality: Excellent. Lungs and pleura: Unchanged 9 mm subpleural right upper lobe pulmonary nodule on series 4 image 168 w hen compared with 02/18/2020 exam. Otherwise no acute air space opacities. No pleural effusions or pn eumothorax. Central and peripheral airways are patent and normal in caliber. Mediastinum: Heart size is normal. No pericardial effusion. No mediastinal adenopathy by size crit eria. Thoracic aorta and central pulmonary arteries are normal in size. Esophagus is normal in mita fela. No hiatal hernia. Bones and chest wall: No suspicious bony lesions. No vertebral body compression fractures. No axil huang or supraclavicular adenopathy by size criteria. The thyroid is normal in size. Abdomen: Visualized upper abdominal solid organs and bowel loops appear normal in the absence of con trast. IMPRESSION: Approximately 9 mm subpleural right upper lobe pulmonary nodule is unchanged from February 2020 exam . Follow-up examination in 6 months is recommended to document ongoing stability. Reviewed by: Noel Bishop MD on 08/04/2020 4:45 PM PST Approved by: Noel Bishop MD on 08/04/2020 4:45 PM PST Station ID: [id number]
== END 2020-08-04 13:10 | disposition home or self-care (01) ==
LOC: DI 13:09
PROVIDERS: ATTEND Internal Medicine Pulmonary Disease
DX: R91.1 Solitary pulmonary nodule (principal)

== ENCOUNTER 2021-08-13 12:23 | Outpatient (CLI) | payer MEDICARE, OTHER ==
--- NOTE | 2021-08-13 23:59 | CT Report ---
PROCEDURE: CHEST WO INDICATIONS: LUNG NODULE TECHNIQUE: Noncontrast 1mm axial images were acquired from the pulmonary apices to the posterior costophrenic an gles. Axial 5 mm soft tissue kernel reconstructions were performed as well as 8 mm axial MIP and cor onal and sagittal 5 mm reformations. For radiation dose reduction, the following was used: automate d exposure control, adjustment of mA and/or kV according to patient size. COMPARISON: CT chest 08/04/2020, 02/18/2020. FINDINGS: Image quality: Excellent. Lungs and pleura: Within the right middle lobe, there is an oval well-circumscribed nodule measuring up to 0.9 cm on series 4 image 187 which appears stable in size compared to the prior studies. In th e left lower lobe, there is a peripheral oval nodule measuring up to 0.7 cm on series 4 image 197 whi ch also appears stable compared to the prior studies. There are also new small clustered nodules infe riorly within the peripheral right middle lobe. No acute consolidation. No pleural effusions or pneum othorax. Central and peripheral airways are patent and normal in caliber. Mediastinum: Heart size is normal. No pericardial effusion. No mediastinal adenopathy by size crit eria. Thoracic aorta and central pulmonary arteries are normal in size. Esophagus is normal in mita fela. No hiatal hernia. Bones and chest wall: No suspicious bony lesions. No vertebral body compression fractures. No axil huang or supraclavicular adenopathy by size criteria. Thyroid demonstrates no discrete nodules. Abdomen: Visualized upper abdominal solid organs and bowel loops appear normal in the absence of con trast. IMPRESSION: 1. Stable right middle and left lower lobe nodules compared to the prior studies dating back to 2019. Recommend continued follow-up in 6-12 months to demonstrate two-year stability. 2. New small clustered indistinct nodules peripherally in the inferior right middle lobe. Findings li gustavo represent a mild infectious or inflammatory process. Reviewed by: Paulino Donovan MD on 08/14/2021 12:00 AM [facility] Approved by: Paulino Donovan MD on 08/14/2021 12:00 AM PST Station ID: [id number]
== END 2021-08-13 12:24 | disposition home or self-care (01) ==
LOC: DI 12:23
PROVIDERS: ATTEND Internal Medicine Pulmonary Disease
DX: R91.8 Other nonspecific abnormal finding of lung field (principal)

== ENCOUNTER 2023-12-02 09:32 | Outpatient (CLI) | payer MEDICARE, OTHER ==
[2023-12-02 12:16] LABS: ALBUMIN 4.3 g/dL (3.2-5.5); ALBUMIN/GLOBULIN RATIO 1.7 (1.0-2.2); ALKALINE PHOSPHATASE 33 IU/L (42-121); ALT ALANINE AMINOTRANSFERASE 24 IU/L (10-60); AST ASPARTATE AMINOTRANSFERASE 28 IU/L (10-42); BILIRUBIN,TOTAL 0.6 mg/dL (0.2-1.0); BUN - BLOOD UREA NITROGEN 19 mg/dL (6-20); CALCIUM 9.6 mg/dL (8.5-10.3); CARBON DIOXIDE - CO2 28 mmol/L (21-32); CHLORIDE 105 mmol/L (101-111); CHOL/HDL RATIO 4.2 (<5.0); CHOLESTEROL 123 mg/dL; CREATININE 1.1 mg/dL (0.6-1.3); GFR - MDRD 66 (>89); GLUCOSE 105 mg/dL (74-104); HDL CHOLESTEROL 29 mg/dL; LDL CHOLESTEROL,CALCULATED 53 mg/dL; LDL/HDL RATIO 1.8 (<3.6); POTASSIUM 3.5 mmol/L (3.5-4.5); SODIUM 140 mmol/L (135-145); TOTAL PROTEIN 6.9 g/dL (6.4-8.9); TRIGLYCERIDES 207 mg/dL (48-352); VLDL CHOLESTEROL 41 mg/dL
== END 2023-12-02 09:33 | disposition home or self-care (01) ==
LOC: LAB.N 09:32
PROVIDERS: ATTEND Nurse Practitioner
DX: I25.10 Atherosclerotic heart disease of native coronary artery without angina pectoris (principal); E78.5 Hyperlipidemia, unspecified
CPT/HCPCS: 36415; 80053; 80061; 83721

== ENCOUNTER 2023-12-15 11:09 | Emergency (ER) | payer MEDICARE, OTHER ==
--- NOTE | 2023-12-15 11:58 | ED Physician Documentation ---
History of Present Illness - Stated complaint Stated Complaint: DIZZINESS,GEN WEAKNESS,SWEATS - Chief complaint Chief Complaint: Neuro - Additonal information Additional information: 68 yo male with hx of couple of heart stents from previous heart attack, prostatitis, HTN, high cholesterol (poor historian) presents to ER for sudden onset dizziness, nausea, vomiting x2, states he feels like the room is spinning. Has had other episodes of dizziness but not to this extent. Recent sore throat and strep around the 07 of December completed full course of Amoxicillin. No chest pain or shortness of breath. PD PAST MEDICAL HISTORY - Past Medical History Cardiovascular: Hypertension, High cholesterol, Coronary artery disease, [place] Respiratory: None Endocrine/Autoimmune: None GI: GERD : Benign prostate hypertrophy HEENT: None Psych: None Musculoskeletal: None Derm: None - Past Surgical History Past Surgical History: Yes General: Colonoscopy Cardiovascular: Coronary stent HEENT: Tonsil/Adenoidectomy, Other - Present Medications Home Medications: Ambulatory Orders Medication Instructions Recorded Confirmed Aspirin 81 mg PO DAILY 12/20/15 02/16/20 Fluticasone [Flonase] 1 spray INH BID 12/20/15 02/16/20 Loratadine [Claritin] 10 mg PO DAILY 12/20/15 02/16/20 Telmisartan [Micardis] 40 mg PO DAILY 12/20/15 02/16/20 Alfuzosin HCl [Alfuzosin HCl ER] 10 mg PO DAILY 12/05/17 02/16/20 Finasteride 5 mg PO DAILY 12/05/17 02/16/20 Omeprazole [PriLOSEC] 20 mg PO DAILY 12/05/17 02/16/20 Fenofibrate Nanocrystallized 145 mg PO DAILY 02/16/20 02/16/20 [Fenofibrate] Rosuvastatin Calcium 20 mg PO DAILY 02/16/20 02/16/20 Lactobacillus Acidophilus 1 each PO DAILY #28 capsule 02/18/20 [Acidophilus] Tamsulosin [Flomax] 0.4 mg PO DAILY #30 capsule 02/18/20 Meclizine [Antivert] 25 mg PO Q6H PRN #20 tablet 12/15/23 Ondansetron Odt [Zofran Odt] 4 mg TL Q6H PRN #10 tablet 12/15/23 - Allergies Allergies/Adverse Reactions: Allergies Allergy/AdvReac Type Severity Reaction Status Date / Time No Known Drug Allergies Allergy Verified 12/15/23 11:55 - Social History Does the pt smoke?: No Smoking Status: Former smoker Does the pt have substance abuse?: No - POLST Patient has POLST: No POLST Status: Full Code PD ED PE NORMAL - Vitals Vital signs reviewed: Yes - General General: Alert and oriented X 3, No acute distress, Well developed/nourished - HEENT HEENT: Atraumatic, PERRL - Neck Neck: Supple, no meningeal sign - Cardiac Cardiac: RRR - Respiratory Respiratory: No respiratory distress - Abdomen Abdomen: Normal bowel sounds, Soft, Non tender - Back Back: No CVA TTP - Derm Derm: Normal color, Warm and dry, No rash - Extremities Extremities: No edema, No calf tenderness / cord - Neuro Neuro: Alert and oriented X 3, vaccine key 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 No: Confused, Disoriented, Lethargic, Normal gait Results - Vitals Vitals: Vital Signs - 24 hr 12/15/23 12/15/23 12/15/23 11:35 11:55 12:07 Temperature 36.1 C L Heart Rate 51 L 85 56 L Respiratory 17 16 17 Rate Blood Pressure 143/85 H 139/83 H 166/88 H O2 Saturation 99 98 98 12/15/23 12/15/23 12/15/23 15:35 16:25 17:54 Temperature Heart Rate 57 L 85 60 Respiratory 15 16 16 Rate Blood Pressure 140/78 H 139/83 H 163/80 H O2 Saturation 99 98 100 Oxygen O2 Source Room air - EKG (time done) 1147 EKG releavant findings:: EKG personally interpreted by author of this note. Relevant findings are: Rate: Rate (enter#) (55) Rhythm: NSR [place]: Normal Intervals: Prolonged AR QRS: Normal Ischemia: Normal ST segments Other comments: Other comments (non specific intraventricular conduction delay) Compare to prior EKG: Unchanged from prior EKG Computer interpretation: Agree with computer - Labs Labs: Laboratory Tests 12/15/23 12/15/23 12/15/23 12:00 12:09 12:09 WBC 8.4 RBC 4.75 Hgb 14.4 Hct 42.1 MCV 88.6 MCH 30.3 MCHC 34.2 RDW 14.4 Plt Count 281 MPV 11.0 Neut # (Auto) 6.7 H Lymph # (Auto) 1.2 L Sunflower # (Auto) 0.5 Eos # (Auto) 0.0 Baso # (Auto) 0.0 Absolute Nucleated RBC 0.00 Nucleated RBC % 0.0 Sodium 141 Potassium 3.7 Chloride 110 Carbon Dioxide 24 Anion Gap 7.0 BUN 22 H Creatinine 1.1 Estimated GFR (MDRD) 66 L Glucose 138 H Calcium 9.6 Magnesium 1.9 Total Bilirubin 0.7 AST 24 ALT 21 Alkaline Phosphatase 30 L Total Protein 7.1 Albumin 4.6 Globulin 2.5 Albumin/Globulin Ratio 1.8 Lipase 45 Urine Color Urine Clarity Urine pH Ur Specific [place] Urine Protein Urine Glucose (UA) Urine Ketones Urine Occult Blood Urine Nitrite Urine Bilirubin Urine Urobilinogen Ur Leukocyte Esterase Urine RBC Urine WBC Ur Squamous Epith Cells Amorphous Sediment Urine Bacteria Ur Microscopic Review Urine Culture Comments Nasal Adenovirus (PCR) NOT DETECTED Nasal B. parapertussis DNA (PCR) NOT DETECTED Nasal Coronavir 229E PCR NOT DETECTED Nasal Coronavir HKU1 PCR NOT DETECTED Nasal Coronavir NL63 PCR NOT DETECTED Nasal Coronavir OC43 PCR NOT DETECTED Nasal Enterovir/Rhinovir PCR NOT DETECTED Nasal Influenza B PCR NOT DETECTED Nasal Influenza A PCR NOT DETECTED Nasal Parainfluen 1 PCR NOT DETECTED Nasal Parainfluen 2 PCR NOT DETECTED Nasal Parainfluen 3 PCR NOT DETECTED Nasal Parainfluen 4 PCR NOT DETECTED Nasal RSV (PCR) NOT DETECTED Nasal B.pertussis DNA PCR NOT DETECTED Nasal C.pneumoniae (PCR) NOT DETECTED Ananda Human Metapneumo PCR NOT DETECTED Nasal M.pneumoniae (PCR) NOT DETECTED Nasal SARS-CoV-2 (PCR) NOT DETECTED 12/15/23 17:26 WBC RBC Hgb Hct MCV MCH MCHC RDW Plt Count MPV Neut # (Auto) Lymph # (Auto) Sunflower # (Auto) Eos # (Auto) Baso # (Auto) Absolute Nucleated RBC Nucleated RBC % Sodium Potassium Chloride Carbon Dioxide Anion Gap BUN Creatinine Estimated GFR (MDRD) Glucose Calcium Magnesium Total Bilirubin AST ALT Alkaline Phosphatase Total Protein Albumin Globulin Albumin/Globulin Ratio Lipase Urine Color DARK YELLOW Urine Clarity HAZY Urine pH 6.0 Ur Specific [place] >=1.030 H Urine Protein NEGATIVE Urine Glucose (UA) NEGATIVE Urine Ketones NEGATIVE Urine Occult Blood NEGATIVE Urine Nitrite NEGATIVE Urine Bilirubin NEGATIVE Urine Urobilinogen 1 (NORMAL) Ur Leukocyte Esterase NEGATIVE Urine RBC None Seen Urine WBC 0-3 Ur Squamous Epith Cells NONE SEEN Amorphous Sediment Marked Urine Bacteria None Seen Ur Microscopic Review INDICATED Urine Culture Comments NOT INDICATED Nasal Adenovirus (PCR) Nasal B. parapertussis DNA (PCR) Nasal Coronavir 229E PCR Nasal Coronavir HKU1 PCR Nasal Coronavir NL63 PCR Nasal Coronavir OC43 PCR Nasal Enterovir/Rhinovir PCR Nasal Influenza B PCR Nasal Influenza A PCR Nasal Parainfluen 1 PCR Nasal Parainfluen 2 PCR Nasal Parainfluen 3 PCR Nasal Parainfluen 4 PCR Nasal RSV (PCR) Nasal B.pertussis DNA PCR Nasal C.pneumoniae (PCR) Ananda Human Metapneumo PCR Nasal M.pneumoniae (PCR) Nasal SARS-CoV-2 (PCR) - Rads (name of study) head CT Relevant Findings:: Final report received, EMP independent interpretation of test, Other (no intracranial abnormalities. ) head mri Relevant Findings:: Final report received, EMP independent interpretation of test, Other (No cause for patient's symptoms is identified. No acute or subacute infarct. No acute intracranial ) PD Medical Decision Making - ED course ED course: 68 yo male here for dizziness, nausea and vomiting differentials to consider but not limited to, vestibular migraine, BPPV, orthotatic hypotension, posterior circulation ischemic stroke. Pt was given Zofran for nausea, IVF, and meclizine for dizziness. Head CT complete to rule out other possible neurological emergencies. Head CT was complete and did not reveal any acute intracranial abnormalities or findings. Had a hard time controlling pts symptoms and was concerned about possible central nystagmus so wanted to pursue MRI to rule out other possible stroke. Brain MRI was complete and did not reveal any acute abnormalities. Negative respiratory panel, no acute Electrolyte abnormalities or findings. Eventually pts symptoms was controlled with meclizine and Zofran and given negative MRI and head CT and no acute electrolyte abnormalities pt likely has BPPV, prescription of Zofran and Meclizine sent to pts preferred pharmacy. Pt was told to follow up with PCP and [facility]. All questions answered pt symptoms significantly improved and return precautio ns. Departure - Departure Disposition: 01 Home, Self Care Clinical Impression: BPPV (benign paroxysmal positional vertigo) Instructions: Vertigo Paroxysmal Positional Prescriptions: Meclizine [Antivert] 25 mg PO Q6H PRN #20 tablet PRN Reason: Dizziness Ondansetron Odt [Zofran Odt] 4 mg TL Q6H PRN #10 tablet PRN Reason: Nausea / Vomiting Comments: Thank you for trusting us with your care. You appear to have BPPV also known as vertigo. Going home I want you to watch some YouTube videos on how to do Arslan's maneuver at home this will be eliciting/inducing the dizziness but this is what helps get the ear Crystal out of your eustachian tube. [place] with her company is called [employer]. I have sent a prescription of meclizine that will help with the dizziness symptoms as well as some Zofran that will help with nausea. Take them as needed per instructions on bottle. Please come back to ER if you are having any worsening symptoms, chest pain, shortness of breath, fevers or chills, or any other concerning emergent symptoms. Wishing a speedy recovery. Forms: PCP List Discharge Date/Time: 12/15/23 18:22
[2023-12-15 12:15] LABS: BASOPHILS % (AUTO) 0.5 %; EOSINOPHILS % (AUTO) 0.5 %; HCT - HEMATOCRIT 42.1 % (42.0-52.0); HGB - HEMOGLOBIN 14.4 g/dL (14.0-18.0); LYMPHOCYTES # (AUTO) 1.2 10^3/uL (1.5-3.5); LYMPHOCYTES % (AUTO) 13.9 %; MEAN CORPUSCULAR HEMOGLOBIN 30.3 pg (27.0-31.0); MEAN CORPUSCULAR HGB CONC 34.2 g/dL (32.0-36.0); MEAN CORPUSCULAR VOLUME 88.6 fL (80.0-94.0); MONOCYTES # (AUTO) 0.5 10^3/uL (0.0-1.0); MONOCYTES % (AUTO) 5.7 %; NEUTROPHILS # (AUTO) 6.7 10^3/uL (1.5-6.6); NEUTROPHILS % (AUTO) 79.2 %; PLT - PLATELET COUNT 281 10^3/uL (130-450); RED BLOOD COUNT 4.75 10^6/uL (4.70-6.10); RED CELL DISTRIBUTION WIDTH 14.4 % (12.0-15.0); WHITE BLOOD COUNT 8.4 x10^3/uL (4.8-10.8)
[2023-12-15] MEDS: ONDANSETRON 4 MG/2 ML VIAL IVP STA ×2 (12:23→13:09)
[2023-12-15] MEDS: SODIUM CHLORIDE 0.9% 1,000 ML IV ONE (12:24)
[2023-12-15 12:44] LABS: ALBUMIN 4.6 g/dL (3.2-5.5); ALBUMIN/GLOBULIN RATIO 1.8 (1.0-2.2); BILIRUBIN,TOTAL 0.7 mg/dL (0.2-1.0); CALCIUM 9.6 mg/dL (8.5-10.3); CREATININE 1.1 mg/dL (0.6-1.3); MAGNESIUM 1.9 mg/dL (1.7-2.3); POTASSIUM 3.7 mmol/L (3.5-4.5); TOTAL PROTEIN 7.1 g/dL (6.4-8.9)
--- NOTE | 2023-12-15 12:50 | CT Report ---
PROCEDURE: Head WO INDICATIONS: dizziness, nausea, vomitting TECHNIQUE: Noncontrast 4.5 mm thick angled axial sections acquired from the foramen magnum to the vertex. For r adiation dose reduction, the following was used: automated exposure control, adjustment of mA and/or kV according to patient size. COMPARISON: None. FINDINGS: Image quality: Excellent. CSF spaces: Basal cisterns are patent. No extra-axial fluid collections. Ventricles are normal in size and shape. Brain: No midline shift. No intracranial masses or hemorrhage. Douglas-white matter interface is norm al. Skull and face: Calvarium and visualized facial bones are intact, without suspicious lesions. Sinuses: Visualized sinuses and mastoids are clear. IMPRESSION: No acute intracranial pathology. Reviewed by: Gurinder Chino MD on 12/15/2023 12:48 PM PDT Approved by: Gurinder Chino MD on 12/15/2023 12:48 PM PDT Station ID: [id number]
[2023-12-15] MEDS: MECLIZINE 12.5 MG TABLET PO STA (12:51)
[2023-12-15 13:52] LABS: B. PARAPERTUSSIS- RESP PCR PAN NOT DETECTED; B. PERTUSSIS- RESP PCR PANEL NOT DETECTED; C. PNEUMONIAE- RESP PCR PANEL NOT DETECTED; CORONAVIRUS 229E-RESP PCR NOT DETECTED; CORONAVIRUS HKU1-RESP PCR NOT DETECTED; CORONAVIRUS NL63-RESP PCR NOT DETECTED; CORONAVIRUS OC43-RESP PCR NOT DETECTED; HUMAN METAPNEUMOVIRUS NOT DETECTED; INFLUENZA A- RESP PCR PANEL NOT DETECTED; INFLUENZA B - RESP PCR PANEL NOT DETECTED; M. PNEUMONIAE- RESP PCR PANEL NOT DETECTED; PARAINFLUENZA VIRUS 1 NOT DETECTED; PARAINFLUENZA VIRUS 2 NOT DETECTED; PARAINFLUENZA VIRUS 3 NOT DETECTED; PARAINFLUENZA VIRUS 4 NOT DETECTED; RHINOVIRUS/ENTEROVIRUS NOT DETECTED; RSV- RESP PCR PANEL NOT DETECTED; SARS-CoV-2 -RESP PCR PANEL NOT DETECTED
[2023-12-15 17:37] LABS: BILIRUBIN,URINE NEGATIVE (NEGATIVE); GLUCOSE, URINE (UA) NEGATIVE (NEGATIVE); KETONES,URINE (UA) NEGATIVE (NEGATIVE); LEUKOCYTE ESTERASE, URINE NEGATIVE (NEGATIVE); NITRITE,URINE NEGATIVE (NEGATIVE); OCCULT BLOOD,URINE NEGATIVE (NEGATIVE); PROTEIN,URINE NEGATIVE (NEGATIVE); UROBILINOGEN,URINE 1 (NORMAL) E.U./dL (NORMAL)
[2023-12-15 17:38] LABS: CLARITY,URINE HAZY (CLEAR)
--- NOTE | 2023-12-15 17:40 | MRI Report ---
PROCEDURE: Brain WO INDICATIONS: dizziness, nystagmus, TECHNIQUE: Noncontrast axial T1 spin echo, axial T2 fast spin echo, sagittal and axial FLAIR, coronal T2 fast sp in echo, axial gradient echo, axial diffusion and ADC through the brain. COMPARISON: CT head 12/15/2023. FINDINGS: Image quality: Excellent. CSF Spaces: Basal cisterns are patent. No extra-axial fluid collections. Ventricles are normal in size and shape. Brain: No intracranial masses or hemorrhage. Age-related global volume loss. Douglas/white matter inte rface is normal. Brainstem appears normal. Diffusion-weighted images demonstrate no acute ischemic insult. No chronic ischemic insults. Normal intravascular flow voids are present. Skull and face: Calvarium has normal marrow signal. Orbits appear normal. Right lens replacement. Sinuses: Bilateral mastoid effusions. Mild diffuse paranasal sinus mucosal thickening.. IMPRESSION: No cause for patient's symptoms is identified. No acute or subacute infarct. No acute intracranial ab normalities. Reviewed by: Guillermo Youngblood MD on 12/15/2023 5:39 PM PDT Approved by: Guillermo Youngblood MD on 12/15/2023 5:39 PM PDT Station ID: [id number]
[2023-12-15 17:48] LABS: AMORPHOUS SEDIMENT,UR Marked /LPF; BACTERIA,URINE None Seen /HPF (None Seen); RBC,URINE None Seen /HPF (0-5); SQUAMOUS EPITHELIAL CELL,UR NONE SEEN (<= Few); WBC,URINE 0-3 /HPF (0-3)
[2023-12-15 17:59] VITALS: BP 163/80; O2SAT 100
== END 2023-12-15 18:22 | disposition home or self-care (01) ==
LOC: ED 11:09
DX: H81.10 Benign paroxysmal vertigo, unspecified ear (principal); R94.31 Abnormal electrocardiogram [ECG] [EKG]; Z11.52 Encounter for screening for COVID-19
CPT/HCPCS: 36415; 70450; 70551; 80053; 81001; 83690; 83735; 85025; 87633; 93005; 96374; 96376; 99284; A9270; 81003; 87086